=== PATIENT | female | born 1995 | race Caucasian/White ===

== ENCOUNTER 2018-05-22 17:55 | Inpatient (IN) | payer BC ==
[2018-05-22] MEDS: LACTATED RINGER'S 1,000 ML IV* ×3 (19:29→22:12)
[2018-05-22] MEDS ORDERED: CARBOPROST 250 MCG INJ IM (19:30)
[2018-05-22] MEDS ORDERED: LIDOCAINE 1% (MPF) 30 ML INJ INJ (19:30)
[2018-05-22] MEDS ORDERED: OXYTOCIN 30 UNITS/LR 500 ML IV (19:30)
[2018-05-22] MEDS ORDERED: BUTORPHANOL 2 MG INJ IV (19:30)
[2018-05-22] MEDS ORDERED: IBUPROFEN 600 MG TAB PO (19:30)
[2018-05-22] MEDS ORDERED: METHYLERGONOVINE 0.2 MG INJ IM (19:30)
[2018-05-22] MEDS ORDERED: MISOPROSTOL 200 MCG TAB PR (19:30)
[2018-05-22 19:32] LABS: ADD MAN DIFF? NO
[2018-05-22 19:34] LABS: BASOPHILS % 0.3 % (0.0-2.0); EOSINOPHILS # 0.2 10^3/ul (0.0-0.5); EOSINOPHILS % 2.3 % (0.0-7.0); HEMATOCRIT 31.9 % (37.0-47.0); HEMOGLOBIN 10.4 g/dl (12.0-16.0); LYMPHOCYTES # 2.5 10^3/ul (0.8-2.9); LYMPHOCYTES % 23.8 % (15.0-51.0); MEAN CORPUSCULAR HEMOGLOBIN 26.3 pg (29.0-33.0); MEAN CORPUSCULAR HGB CONC 32.6 g/dl (32.0-37.0); MEAN CORPUSCULAR VOLUME 80.8 fl (82.0-101.0); MEAN PLATELET VOLUME 11.9 fl (7.4-10.4); MONOCYTE # 0.7 10^3/ul (0.3-0.9); MONOCYTES % 6.7 % (0.0-11.0); NEUTROPHIL # 6.9 10^3/ul (1.6-7.5); NEUTROPHILS % 66.3 % (39.0-77.0); PLATELET COUNT 244 10^3/UL (140-415); RED BLOOD COUNT 3.95 10^6/ul (4.20-5.40); RED CELL DISTRIBUTION WIDTH 14.4 % (11.5-14.5)
[2018-05-22 19:34] LABS: WHITE BLOOD COUNT 10.4 10^3/ul (4.8-10.8)
[2018-05-22 19:49] LABS: INR 0.93; PROTIME 12.5 Sec (11.9-14.9)
[2018-05-22 19:50] LABS: PARTIAL THROMBOPLASTIN TIME 29.7 Sec (23.0-35.0)
[2018-05-22 20:23] LABS: HEPATITIS B SURFACE ANTIGEN NEGATIVE (NEGATIVE)
[2018-05-22] MEDS ORDERED: NALOXONE (0.4 MG/ML) INJ IV (20:30)
[2018-05-22] MEDS ORDERED: DIPHENHYDRAMINE 50 MG INJ IV (20:30)
[2018-05-22] MEDS ORDERED: ONDANSETRON 4 MG INJ IV (20:30)
[2018-05-22] MEDS ORDERED: FENTAnyl 2MCG/ML-ROPIV 0.2% 100 ML BAG EPI (20:30)
[2018-05-23] MEDS ORDERED: MINERAL OIL LIGHT 10 ML VIAL (01:46)
[2018-05-23] MEDS ORDERED: ZOLPIDEM 5 MG TAB PO (02:00)
[2018-05-23] MEDS: MINERAL OIL LIGHT 10 ML VIAL TOP (02:00)
[2018-05-23] MEDS ORDERED: ACETAMINOPHEN 325 MG TAB PO (02:00)
[2018-05-23] MEDS ORDERED: NACL 0.9% 3 ML SYG IV (02:00)
[2018-05-23] MEDS ORDERED: METHYLERGONOVINE 0.2 MG INJ IM (02:00)
[2018-05-23] MEDS ORDERED: CARBOPROST 250 MCG INJ IM (02:00)
[2018-05-23] MEDS ORDERED: MISOPROSTOL 200 MCG TAB PR (02:00)
[2018-05-23] MEDS ORDERED: OXYTOCIN 30 UNITS/LR 500 ML IV (02:00)
[2018-05-23] MEDS ORDERED: ONDANSETRON 4 MG INJ IV (02:00)
[2018-05-23] MEDS ORDERED: DIPHENHYDRAMINE 25 MG CAP PO (02:00)
[2018-05-23] MEDS ORDERED: HYDROCODONE/APAP (5/325) TAB PO (02:00)
[2018-05-23] MEDS: OXYTOCIN 30 UNITS/LR 500 ML IV ×2 (02:07→03:02)
[2018-05-23] MEDS: IBUPROFEN 600 MG TAB PO ×3 (06:00→18:23)
[2018-05-23] MEDS: SENNA/DOCUSATE NA (8.6MG/50MG) TAB PO ×2 (08:24→21:00)
[2018-05-23] MEDS: LANOLIN 7 GM TUBE TOP (08:24)
[2018-05-23] MEDS: WITCH HAZEL/GLYCERIN PAD PR (08:24)
[2018-05-23] MEDS: HYDROCODONE/APAP (5/325) TAB PO (10:46)
[2018-05-23 16:44] LABS: RAPID PLASMA REAGIN NONREACTIVE (NR)
[2018-05-23] MEDS: LACTATED RINGER'S 1,000 ML IV* (19:30)
[2018-05-24] MEDS: LACTATED RINGER'S 1,000 ML IV* (03:30)
[2018-05-24] MEDS: IBUPROFEN 600 MG TAB PO ×3 (05:48→12:18)
[2018-05-24 06:50] LABS: ADD MAN DIFF? NO
[2018-05-24 06:51] LABS: BASOPHILS % 0.3 % (0.0-2.0); EOSINOPHILS # 0.2 10^3/ul (0.0-0.5); EOSINOPHILS % 1.6 % (0.0-7.0); HEMATOCRIT 28.1 % (37.0-47.0); LYMPHOCYTES # 2.4 10^3/ul (0.8-2.9); LYMPHOCYTES % 21.4 % (15.0-51.0); MEAN CORPUSCULAR HEMOGLOBIN 26.3 pg (29.0-33.0); MEAN CORPUSCULAR VOLUME 82.2 fl (82.0-101.0); MEAN PLATELET VOLUME 11.4 fl (7.4-10.4); MONOCYTE # 0.6 10^3/ul (0.3-0.9); MONOCYTES % 5.2 % (0.0-11.0); NEUTROPHILS % 70.7 % (39.0-77.0); PLATELET COUNT 197 10^3/UL (140-415); RED BLOOD COUNT 3.42 10^6/ul (4.20-5.40); RED CELL DISTRIBUTION WIDTH 15.1 % (11.5-14.5)
[2018-05-24 06:51] LABS: WHITE BLOOD COUNT 11.4 10^3/ul (4.8-10.8)
[2018-05-24] MEDS: SENNA/DOCUSATE NA (8.6MG/50MG) TAB PO (10:16)
== END 2018-05-24 14:40 | disposition home or self-care (01) | DRG 807 ==
LOC: L-D 17:55 → PP1 05-23 04:48 → L-D 18:15 → OBT 18:24 → L-D 18:25 → OBT 18:25 → L-D 18:24
PROVIDERS: Obstetrics & Gynecology
PROC: 10E0XZZ Delivery of Products of Conception, External Approach (ICD-10-PCS; principal; 2018-05-23)
DX: O77.0 Labor and delivery complicated by meconium in amniotic fluid (principal); Z37.0 Single live birth; Z3A.40 40 weeks gestation of pregnancy
CPT/HCPCS: 62319; 85025; 85610; 85730; 86592; 86850; 86900; 86901; 87340; 99464